=== PATIENT | male | born 1960 | race Caucasian/White ===

== ENCOUNTER → 2017-12-28 | Outpatient (CLI) | payer BC ==
--- NOTE | 2017-12-28 07:59 | MR ---
EXAMINATION TYPE: MR knee LT wo con DATE OF EXAM: 12/28/2017 COMPARISON: None HISTORY: Internal derangement of left knee TECHNIQUE: Multiplanar, multisequence imaging of the left knee is performed without IV contrast. FINDINGS: MEDIAL MENISCUS: There is a complex tear involving the posterior horn of the medial meniscus. Extensi on of the tear to the anterior horn noted. LATERAL MENISCUS: Linear abnormal signal involving the posterior horn of the lateral meniscus suspici ous for subtle tear. CRUCIATE LIGAMENTS: The anterior and posterior cruciate ligaments are intact. There does appear to be intrasubstance signal within the PCL which may represent chronic strain. COLLATERAL LIGAMENTS: The medial collateral ligament and lateral collateral ligament complex are inta ct and unremarkable. EXTENSOR MECHANISM: Visualized quadriceps and patellar tendons are intact. EFFUSION: There is a small amount of fluid in the suprapatellar bursa. POPLITEAL CYST: 1.7 x 1.4 x 1 cm popliteal fossa cyst noted TRICOMPARTMENT SPACES: No erosive changes. Mild narrowing of the medial compartment and patellofemora l joint. There is a grade IV chondromalacia of the patellar cartilage. There is grade II chondromalac ia of the articular medial femoral cartilage. BONE MARROW SIGNAL: There is a 2 cm area of marrow edema or contusion involving the posterior medial tibia. No definite fracture line. Areas of abnormal signal involving the patella likely reactive and post arthritic. OTHER: Small amount of fluid or edema anterior to the gastrocnemius along the lateral margin of the popliteal fossa.. IMPRESSION: 1. Complex tear posterior horn the medial meniscus with extension into the anterior horn. 2. Osteoarthritis with grade IV chondromalacia involving the patellar cartilage. 3. Bone edema or contusion which could be reactive involving the posterior medial tibial plateau with no definite fracture line. 4. Chronic PCL strain with no evidence of tear. 5. 1 x 1.4 x 1.7 cm popliteal fossa cyst. 6. Simple linear tear posterior horn lateral meniscus.
== END | disposition home or self-care (01) ==
LOC: RADMRIMAIN 06:04
PROVIDERS: ATTEND Family Medicine
DX: S83.242A Other tear of medial meniscus, current injury, left knee, initial encounter (principal); S83.282A Other tear of lateral meniscus, current injury, left knee, initial encounter; S83.522A Sprain of posterior cruciate ligament of left knee, initial encounter; M17.12 Unilateral primary osteoarthritis, left knee; M22.42 Chondromalacia patellae, left knee; M71.22 Synovial cyst of popliteal space [Baker], left knee

== ENCOUNTER → 2019-11-05 | Outpatient (CLI) | payer BC | END | disposition home or self-care (01) | LOC: EKGWHC1 15:49 | PROVIDERS: ATTEND Surgery Plastic and Reconstructive Surgery | DX: Z01.818 Encounter for other preprocedural examination (principal) | CPT/HCPCS: 93005 ==

== ENCOUNTER 2019-12-06 11:58 | Day surgery (SDC) | payer BC ==
[2019-12-02 11:19] VITALS: BMI 34.9
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
[~2019-12-06 11:58] MED LIST: ACETAMINOPHEN TAB 500 MG TAB PO STA; GABAPENTIN 300 MG CAP PO ONE; HEPARIN SODIUM,PORCINE 5,000 UNIT/ML 1 ML VIAL SQ ONE; TAMSULOSIN 0.4 MG CAP.ER.24H PO ONE
[2019-12-06] MEDS ORDERED: SCOPOLAMINE 1.5MG/72HR PATCH TRANSDERM ONE (12:08)
[2019-12-06] MEDS ORDERED: ONDANSETRON 4 MG/2 ML VIAL IVP ONE (12:08)
[2019-12-06] MEDS ORDERED: LACTATED RINGERS 1,000 ML IV SCH (12:08)
[2019-12-06] MEDS ORDERED: HYDROmorphone 0.5 MG/0.5 ML SYRINGE IVP PRN (12:08)
[2019-12-06] MEDS ORDERED: DEXAMETHASONE SOD PHOSPHATE 10 MG/ML 1 ML VIAL IV ONE (12:08)
[2019-12-06] MEDS ORDERED: MIDAZOLAM 2 MG/2 ML VIAL IV PRN (12:08)
[2019-12-06] MEDS ORDERED: HEPARIN SODIUM,PORCINE 5,000 UNIT/ML 1 ML VIAL ONE (12:32)
[2019-12-06] MEDS ORDERED: ACETAMINOPHEN TAB 500 MG TAB ONE (12:32)
[2019-12-06] MEDS ORDERED: ONDANSETRON 4 MG/2 ML VIAL ONE (12:32)
[2019-12-06] MEDS ORDERED: MIDAZOLAM 2 MG/2 ML VIAL IV ONE (13:11)
[2019-12-06 13:16] LABS: Basophils % (A) 1 %; Eosinophils # (A) 0.1 k/uL (0-0.7); Eosinophils % (A) 3 %; HCT 43.7 % (39.0-53.0); HGB 14.2 gm/dL (13.0-17.5); Lymphocytes # (A) 1.1 k/uL (1.0-4.8); Lymphocytes % (A) 28 %; MCH 28.2 pg (25.0-35.0); MCHC 32.5 g/dL (31.0-37.0); MCV 86.9 fL (80.0-100.0); Mean Platelet Volume 8.1; Monocytes # (A) 0.3 k/uL (0-1.0); Monocytes % (A) 7 %; Neutrophils # (A) 2.3 k/uL (1.3-7.7); Neutrophils % (A) 59 %; Platelet Count 175 k/uL (150-450); RBC 5.03 m/uL (4.30-5.90); RDW 13.5 % (11.5-15.5)
--- NOTE | 2019-12-06 13:22 | P.ANPRN ---
Procedure Note - Anesthesia - Nerve Block Performed Bilateral Rectus Abdominis Single Time Out Performed: Yes (1311) Date of Procedure: 12/06/19 Procedure Start Time: 13:12 Procedure Stop Time: :20 Location of Patient: PreOp Indication: Acute Post-Operative Pain, Analgesia, Requested by Surgeon Specifically requested for management of pain by : Kim Murrell Sedation Type: Sedate with meaningful contact maintained Preparation: Sterile Prep Position: Supine Needle Types: Pajunk Needle Gauge: 20 Ultrasound used to visualize needle placement: Yes Ultrasound used to observe medication spread: Yes Injectate: Other (see comment) (Ropivacaine 0.5% 30 mL and decadron 10 split between both sides) Blood Aspirated: No Pain Paresthesia on Injection Noted: No Resistance on Injection: Normal Image Stored and Saved: Yes Events: Uneventful and Well Tolerated
[2019-12-06 13:25] LABS: ALT 44 U/L (4-49); AST 44 U/L (17-59); African American GFR (CKD) >90 (>60 ml/min/1.73 sqM); Albumin 4.6 g/dL (3.5-5.0); Alkaline Phosphatase 84 U/L (38-126); Anion Gap 9 mmol/L; Blood Urea Nitrogen 12 mg/dL (9-20); Calcium 9.1 mg/dL (8.4-10.2); Carbon Dioxide 22 mmol/L (22-30); Chloride 108 mmol/L (98-107); Glucose 112 mg/dL (74-99); Non-African American GFR(CKD) >90 (>60 ml/min/1.73 sqM); Potassium 4.3 mmol/L (3.5-5.1); Sodium 139 mmol/L (137-145); Total Bilirubin 0.7 mg/dL (0.2-1.3); Total Protein 7.1 g/dL (6.3-8.2)
[2019-12-06] MEDS ORDERED: NEOSTIGMINE 1 MG/ML 10 ML VIAL ONE (14:25)
[2019-12-06] MEDS ORDERED: MIDAZOLAM 2 MG/2 ML VIAL ONE (14:25)
[2019-12-06] MEDS ORDERED: ROCURONIUM BROMIDE 10 MG/ML 5 ML VIAL IV ONE (14:25)
[2019-12-06] MEDS ORDERED: ROPIVACAINE 5 MG/ML 30 ML VIAL ONE (14:25)
[2019-12-06] MEDS ORDERED: fentaNYL (PF) 50 MCG/ML 2 ML AMP ONE (14:25)
[2019-12-06] MEDS ORDERED: GLYCOPYRROLATE 0.2 MG/ML 2 ML VIAL ONE (14:25)
[2019-12-06] MEDS ORDERED: DEXAMETHASONE SOD PHOSPHATE 4 MG/ML 1 ML VIAL ONE (14:25)
[2019-12-06] MEDS ORDERED: PROPOFOL 10 MG/ML 20 ML VIAL IV ONE (14:25)
[2019-12-06] MEDS ORDERED: SUCCINYLCHOLINE CHLORIDE 100 MG/5 ML SYR IV ONE (14:25)
[2019-12-06] MEDS ORDERED: LIDOCAINE 1% INJ 10MG/ML (20 ML MDV) ONE (14:25)
[2019-12-06] MEDS ORDERED: HYDROmorphone (PF) 1 MG/ML ONE (14:25)
[2019-12-06] MEDS ORDERED: LIDOCAINE 1%-EPI 1:100,000 20 ML VIAL SQ ONE ×2 (14:30→15:02)
[2019-12-06] MEDS ORDERED: LACTATED RINGERS 1,000 ML IV ONE (15:34)
[2019-12-06 15:47] VITALS: TEMP 97.2
[2019-12-06] MEDS ORDERED: KETOROLAC 15 MG/ML 1 ML VIAL IVP PRN (15:51)
--- NOTE | 2019-12-06 15:58 | P.OP ---
Date of Procedure: 12/06/19 Description of Procedure: SURGEON: KIM MURRELL MD PREOPERATIVE DIAGNOSES: 1. Initial incarcerated umbilical hernia 2. Hypertensive heart disease POSTOPERATIVE DIAGNOSES: 1. Initial incarcerated umbilical hernia 2. Hypertensive heart disease OPERATION: 1. Robotic-assisted da Adan Xi laparoscopic repair of initial incarcerated umbilical hernia with mesh, ventralight ST mesh 11.4 cm Anesthesia: GETA, regional, local Estimated Blood Loss (ml): 5 Pathology: 1. Incarcerated umbilical hernia defect COMPLICATIONS: None. Operative Findings: 1. Umbilical hernia defect 1.5 cm 2. Fascia repaired using #1 V-lock suture INDICATIONS: The patient is a 59 year-old male who presents with a personal history of abdominal wall hernia. Surgical intervention with laparoscopic versus robotic and open techniques were reviewed. Placement of mesh was also reviewed. Benefits and risks were thoroughly described. Informed consent was obtained. DESCRIPTION OF PROCEDURE: The patient was brought into the operating room and laid in supine position. After general induction, the abdomen had been prepped and draped in standard sterile fashion. Ioban draping was also placed. Prior to incision, a timeout protocol was confirmed with surgical team regarding the patient's name including procedures to be performed. The robot was primed prior to the procedure. A field block using local anesthetic was placed along hernia site including the proposed port sites. Initial incision was made with an #11 blade along the left upper quadrant. A 0 degree 5 mm laparoscopic trocar entry was performed and insufflated. Three 8 mm ports were placed along the left lateral abdominal wall under direct localization after exchanging the 5-mm for an 8 mm port. Placements of the ports were 15 cm from the target anatomy and 10 cm apart. An accessory 12 mm port was placed at the right upper quadrant for exchange of mesh including sutures. The [place] Roomi Xi robot was previously primed, prepped and draped then docked from the right side of the patient onto the left side of the patient. I then sat at the robot [employer] Adan Xi console where working arms of the robot including Bovie cautery connected to robotic scissors, needle route sales driver, and graspers placed by the multimedia assistant. Incarcerated omental contents were found along the umbilicus. The defects were reduced with preperitoneal fat for umbilical hernia defect 1.5 cm. The incarcerated contents were reduced as the peritoneal fat was cleaned from the abdominal wall. Next, hemostasis was checked with cautery. The hernia defect was oversewn using #1 nonabsorbable V-lock suture with fascial imbrication x 2. A final endoscopic imaging was obtained. All instruments and pneumoperitoneum were evacuated from the abdominal cavity. The da Adan Xi robot was undocked from the patient. I re-scrubbed into the case for closure of incisions. The fascia of the 12-mm port was probed and less than 8-mm in size. The incisions were reapproximated using 4-0 Monocryl in an interrupted subcuticular fashion. Liquid glue was applied to the skin after cleansing the skin with normal saline and dilute hydrogen peroxide. An abdominal binder was placed. An umbilical dressing was placed prior. At the end of the procedure, needle, sponge, and instrument count had been verified correct by surgical manager. The patient was taken to the postanesthesia care unit in stable condition. Plan - Discharge Summary Discharge Rx Participant: Yes New Discharge Prescriptions: New Ibuprofen [Motrin] 600 mg PO Q8HR PRN #30 tab PRN Reason: Pain Acetaminophen Tab [Tylenol Tab] 1,000 mg PO Q6HR PRN #30 tablet HYDROcodone/APAP 5-325MG [Elizabeth 5-325] 1 tab PO Q6HR PRN 3 Days #10 tab PRN Reason: Pain Continue Glucos Sul 2Kcl/MSM/Chond/C/Mn [Glucosamine Chondroitin Cap] 1 each PO DAILY amLODIPine BESYLATE/BENAZEPRIL [amLODIPine BESYLATE/BENAZEPRIL 5-10 MG] 1 each PO W/SUPPER Fish Oil/Dha/Epa [Fish Oil 1,200 mg Fish Oil] 1 each PO DAILY Discharge Medication List Fish Oil/Dha/Epa [Fish Oil 1,200 mg Fish Oil] 1 each PO DAILY 12/02/19 [History] Glucos Sul 2Kcl/MSM/Chond/C/Mn [Glucosamine Chondroitin Cap] 1 each PO DAILY 12/02/19 [History] amLODIPine BESYLATE/BENAZEPRIL [amLODIPine BESYLATE/BENAZEPRIL 5-10 MG] 1 each PO W/SUPPER 12/02/19 [History] Acetaminophen Tab [Tylenol Tab] 1,000 mg PO Q6HR PRN #30 tablet 12/06/19 [Rx] HYDROcodone/APAP 5-325MG [Elizabeth 5-325] 1 tab PO Q6HR PRN 3 Days #10 tab 12/06/19 [Rx] Ibuprofen [Motrin] 600 mg PO Q8HR PRN #30 tab 12/06/19 [Rx] Follow up Appointment(s)/Referral(s): Kim Murrell MD [STAFF PHYSICIAN] - 12/10/19 Patient Instructions/Handouts: *[facility] - Managing Your Pain After Surgery Without Opioids, Umbilical Hernia (GEN), Ventral Hernia Repair (DC), Abdominal Binder (DC) Activity/Diet/Wound Care/Special Instructions: Wear abdominal binder at all times No lifting over 4 pounds in 4 weeks until Jan 05. August shower. No bath tub soaks for two weeks until Dec 19. Diet as tolerated. No driving while on narcotics. Use Tylenol and ibuprofen/Aleve scheduled for the next 24-48 hours for best pain relief. Use ice along incisions for the today to prevent swelling. Discharge Disposition: HOME SELF-CARE
[2019-12-06 17:13] VITALS: RESP 20
[2019-12-06 18:02] VITALS: BP 143/89; PULSE 86
== END 2019-12-06 18:30 | disposition home or self-care (01) ==
LOC: OR 11:58
PROVIDERS: ATTEND Surgery Plastic and Reconstructive Surgery
DX: K42.0 Umbilical hernia with obstruction, without gangrene (principal); I11.9 Hypertensive heart disease without heart failure; M19.90 Unspecified osteoarthritis, unspecified site; Z91.013 Allergy to seafood; Z79.899 Other long term (current) drug therapy; Z90.89 Acquired absence of other organs; Z87.891 Personal history of nicotine dependence
CPT/HCPCS: 64488; 80053; 85025; 49653; J2250; J1644; J1100 ×2; J2710; J0690; J2405; J2001; J3010; J1170 ×2; J2795; J0330; J2704; 88302

== ENCOUNTER 2020-02-06 08:07 | Day surgery (SDC) | payer BC ==
[2020-02-03 15:32] VITALS: BMI 34.5
[2020-02-06 09:03] VITALS: TEMP 98.4
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
[2020-02-06] MEDS: LACTATED RINGERS 1,000 ML IV SCH ×2 (09:11→09:43)
[2020-02-06] MEDS ORDERED: PROPOFOL 10 MG/ML 20 ML VIAL IV ONE (09:45)
--- NOTE | 2020-02-06 10:01 | P.PCN ---
Date of Procedure: 02/06/20 Description of Procedure: PREOPERATIVE DIAGNOSIS: Colonoscopy screening. POSTOPERATIVE DIAGNOSIS: Colonoscopy screening. OPERATION: Colonoscopy to the cecum, ileocecal valve and appendiceal orifice. SURGEON: Kim Murrell MD. ANESTHESIA: MAC. INDICATIONS: The patient is a 59-year-old male who presents for his first colonoscopy screening. Benefits and risks were described and informed consent was obtained. DESCRIPTION OF PROCEDURE: The patient had undergone Suprep. He had been brought into the operating room and laid in the left lateral decubitus position. After adequate intravenous sedation, the rectum was examined with 2% lidocaine jelly. No external hemorrhoids were encountered. The rectal tone was within normal limits. The prostate was unremarkable. No lesions were palpated in the rectal vault. An Olympus colonoscope was advanced until the cecum, ileocecal valve and appendiceal orifice were clearly viewed. The prep was excellent. Scattered diverticulosis was encountered. No colonic polyps were found. Few scattered very mild focal colitis was found. Retroflexion of the scope demonstrated grade 1 internal hemorrhoids without active bleeding or inflammation. The colon was desufflated. The patient had tolerated the procedure well. Withdrawal time was over 6 minutes. FINDINGS: Aronchick preparation quality scale 1 (1-5) Internal hemorrhoids, grade 1 No external prolapsed hemorrhoids. No arteriovenous malformations. No adenomatous polyps. Very mild scattered colitis RECOMMENDATIONS: Lower endoscopy in 10 years2029 Plan - Discharge Summary Discharge Rx Participant: No New Discharge Prescriptions: Continue Glucos Sul 2Kcl/MSM/Chond/C/Mn [Glucosamine Chondroitin Cap] 1 each PO DAILY amLODIPine BESYLATE/BENAZEPRIL [amLODIPine BESYLATE/BENAZEPRIL 5-10 MG] 1 each PO W/SUPPER Fish Oil/Dha/Epa [Fish Oil 1,200 mg Fish Oil] 1 each PO DAILY Discharge Medication List Fish Oil/Dha/Epa [Fish Oil 1,200 mg Fish Oil] 1 each PO DAILY 12/02/19 [History] Glucos Sul 2Kcl/MSM/Chond/C/Mn [Glucosamine Chondroitin Cap] 1 each PO DAILY 12/02/19 [History] amLODIPine BESYLATE/BENAZEPRIL [amLODIPine BESYLATE/BENAZEPRIL 5-10 MG] 1 each PO W/SUPPER 12/02/19 [History] Follow up Appointment(s)/Referral(s): Kim Murrell MD [STAFF PHYSICIAN] - As Needed Patient Instructions/Handouts: *[facility] - (Anesthesia) Endoscopy Discharge Instructions Activity/Diet/Wound Care/Special Instructions: Repeat colonoscopy 10 years, 2029 Discharge Disposition: HOME SELF-CARE
[2020-02-06 10:10] VITALS: RESP 16
[2020-02-06 10:30] VITALS: BP 144/81; PULSE 76
== END 2020-02-06 10:45 | disposition home or self-care (01) ==
LOC: ORWHC2ENDO 08:07
PROVIDERS: ATTEND Surgery Plastic and Reconstructive Surgery
DX: Z12.11 Encounter for screening for malignant neoplasm of colon (principal); K52.9 Noninfective gastroenteritis and colitis, unspecified; K57.30 Diverticulosis of large intestine without perforation or abscess without bleeding; K64.0 First degree hemorrhoids; E66.01 Morbid (severe) obesity due to excess calories; Z68.34 Body mass index [BMI] 34.0-34.9, adult; I10 Essential (primary) hypertension; M19.90 Unspecified osteoarthritis, unspecified site; Z98.890 Other specified postprocedural states; Z87.891 Personal history of nicotine dependence; Z79.899 Other long term (current) drug therapy; Z91.013 Allergy to seafood
CPT/HCPCS: J2704; G0121